=== PATIENT | female | born 1945 | race Caucasian/White ===

== ENCOUNTER → 2019-08-02 | Outpatient (CLI) | payer MEDICARE, OTHER ==
[~2019-08-02] MED LIST: ASPI-404 PO; GABA300C10 PO; METO-169 PO; NAP500T PO; ROSU10TA16 PO
[2019-08-02 09:20] LABS: Basophils # (auto) 0.1 10 ^3/uL (0-0.2); Basophils % (auto) 1.3 % (0.0-2.0); Eosinophils # (auto) 0.1 10 ^3/uL (0-0.8); Eosinophils % (auto) 2.9 % (0.0-7.0); Hematocrit 43.9 % (36.0-46.0); Hemoglobin 14.6 g/dL (12.2-16.2); Lymphocytes # (auto) 1.4 10 ^3/uL (0.4-5.4); Lymphocytes % (auto) 30.1 % (10.0-50.0); Mean Corpuscular Hemoglobin 29.7 pg (28.0-32.0); Mean Corpuscular Hgb Conc. 33.3 g/dL (32.0-36.0); Mean Corpuscular Volume 89.2 fL (80.0-100.0); Monocytes # (auto) 0.3 10 ^3/uL (0-1.3); Monocytes % (auto) 7.3 % (0.0-12.0); Neutrophils # (auto) 2.6 10 ^3/uL (1.6-8.6); Neutrophils % (auto) 58.4 % (37.0-80.0); Platelet Count (auto) 173 10^3/uL (140-450); Red Blood Cells 4.93 10^6/uL (4.0-5.20); Red Cell Distribution Width 14.9 % (11.8-14.3); White Blood Cell 4.5 10^3/uL (4.4-10.8)
[2019-08-02 09:33] LABS: Urine Blood Negative /uL (Negative); Urine Specific Gravity 1.007 (1.001-1.035); Urine WBC 93 /hpf (0 - 5)
[2019-08-02 09:36] LABS: Urine Bacteria MODERATE /hpf (None Seen)
[2019-08-02 10:04] LABS: Potassium 3.5 mmol/L (3.5-5.1)
[2019-08-02 10:10] LABS: Carcinoembryonic Antigen 1.15 ng/mL (<5.0 OR =); Free T4 (Free Thyroxine) 1.85 ng/dL (0.89-1.76)
[2019-08-02 10:16] LABS: Albumin 3.6 g/dL (3.4-5.0); BUN/Creatinine Ratio 7.3; Bilirubin, Total 1.5 mg/dL (0.2-1.0); Calcium 8.9 mg/dL (8.5-10.1); Total Protein 6.8 g/dL (6.4-8.2)
== END | disposition home or self-care (01) ==
LOC: LAB 08:27
PROVIDERS: ATTEND Internal Medicine
DX: I10 Essential (primary) hypertension (principal); E03.9 Hypothyroidism, unspecified; R63.4 Abnormal weight loss; R53.83 Other fatigue; R73.03 Prediabetes
CPT/HCPCS: 36415; 80053; 80061; 81001; 82378; 82607; 83036; 84439; 84443; 85025; 87086; 87088; 87186

== ENCOUNTER → 2019-11-01 | Outpatient (CLI) | payer MEDICARE, OTHER ==
[2019-11-01 14:36] LABS: Basophils # (auto) 0.1 10 ^3/uL (0-0.2); Basophils % (auto) 1.1 % (0.0-2.0); Eosinophils # (auto) 0.1 10 ^3/uL (0-0.8); Eosinophils % (auto) 1.7 % (0.0-7.0); Hematocrit 44.3 % (36.0-46.0); Hemoglobin 14.4 g/dL (12.2-16.2); Lymphocytes % (auto) 28.6 % (10.0-50.0); Mean Corpuscular Hemoglobin 28.9 pg (28.0-32.0); Mean Corpuscular Hgb Conc. 32.5 g/dL (32.0-36.0); Mean Corpuscular Volume 88.8 fL (80.0-100.0); Monocytes # (auto) 0.5 10 ^3/uL (0-1.3); Monocytes % (auto) 6.6 % (0.0-12.0); Neutrophils # (auto) 4.3 10 ^3/uL (1.6-8.6); Nucleated Red Blood Cells % 0.1 %; Platelet Count (auto) 192 10^3/uL (140-450); Red Blood Cells 4.98 10^6/uL (4.0-5.20); White Blood Cell 6.9 10^3/uL (4.4-10.8)
[2019-11-01 15:23] LABS: Albumin 3.8 g/dL (3.4-5.0); BUN/Creatinine Ratio 9.2; Calcium 8.7 mg/dL (8.5-10.1); Potassium 4.1 mmol/L (3.5-5.1)
[2019-11-01 15:25] LABS: Bilirubin, Total 1.4 mg/dL (0.2-1.0)
== END | disposition home or self-care (01) ==
LOC: LAB 14:22
PROVIDERS: ATTEND Internal Medicine
DX: R73.03 Prediabetes (principal); E03.9 Hypothyroidism, unspecified
CPT/HCPCS: 36415; 80053; 83036; 84439; 84443; 85025

== ENCOUNTER → 2019-12-12 | Outpatient (CLI) | payer MEDICARE, OTHER | END | disposition home or self-care (01) | LOC: LAB 11:15 | PROVIDERS: ATTEND Internal Medicine | DX: I48.91 Unspecified atrial fibrillation (principal) | CPT/HCPCS: 36415; 80162 ==

== ENCOUNTER → 2019-12-12 | Outpatient (CLI) | payer MEDICARE, OTHER | END | disposition home or self-care (01) | LOC: XYW 09:34 | PROVIDERS: ATTEND Internal Medicine | DX: I08.3 Combined rheumatic disorders of mitral, aortic and tricuspid valves (principal); I48.91 Unspecified atrial fibrillation | CPT/HCPCS: 93306 ==

== ENCOUNTER → 2020-05-29 | Outpatient (CLI) | payer MEDICARE, OTHER ==
[~2020-05-29] MED LIST changes: -ASPI-404 PO; +ASPI-543 PO
[2020-05-29 11:39] LABS: Basophils # (auto) 0.1 10 ^3/uL (0-0.2); Basophils % (auto) 1.1 % (0.0-2.0); Eosinophils # (auto) 0.1 10 ^3/uL (0-0.8); Eosinophils % (auto) 2.2 % (0.0-7.0); Hematocrit 40.5 % (36.0-46.0); Hemoglobin 13.7 g/dL (12.2-16.2); Lymphocytes # (auto) 1.7 10 ^3/uL (0.4-5.4); Lymphocytes % (auto) 30.2 % (10.0-50.0); Mean Corpuscular Hemoglobin 29.8 pg (28.0-32.0); Mean Corpuscular Hgb Conc. 33.8 g/dL (32.0-36.0); Mean Corpuscular Volume 88.1 fL (80.0-100.0); Monocytes # (auto) 0.3 10 ^3/uL (0-1.3); Monocytes % (auto) 5.9 % (0.0-12.0); Neutrophils # (auto) 3.4 10 ^3/uL (1.6-8.6); Neutrophils % (auto) 60.6 % (37.0-80.0); Nucleated Red Blood Cells % 0.1 %; Platelet Count (auto) 154 10^3/uL (140-450); Red Blood Cells 4.59 10^6/uL (4.0-5.20); Red Cell Distribution Width 14.8 % (11.8-14.3); White Blood Cell 5.6 10^3/uL (4.4-10.8)
[2020-05-29 12:30] LABS: Albumin 3.8 g/dL (3.4-5.0); Calcium 8.8 mg/dL (8.5-10.1); Potassium 4.1 mmol/L (3.5-5.1)
[2020-05-29 12:34] LABS: Total Protein 7.3 g/dL (6.4-8.2)
== END | disposition home or self-care (01) ==
LOC: LAB 11:26
PROVIDERS: ATTEND Internal Medicine
DX: I10 Essential (primary) hypertension (principal); E03.9 Hypothyroidism, unspecified; R73.9 Hyperglycemia, unspecified
CPT/HCPCS: 36415; 80053; 83036; 84439; 84443; 85025

== ENCOUNTER → 2020-11-13 | Outpatient (CLI) | payer MEDICARE, OTHER ==
[~2020-11-13] MED LIST changes: -METO-169 PO; +METO-289 PO
== END | disposition home or self-care (01) ==
LOC: XYW 10:35
PROVIDERS: ATTEND Internal Medicine
DX: I08.3 Combined rheumatic disorders of mitral, aortic and tricuspid valves (principal); I48.91 Unspecified atrial fibrillation; I50.9 Heart failure, unspecified
CPT/HCPCS: 93306

== ENCOUNTER → 2020-11-26 | Outpatient (CLI) | payer MEDICARE, OTHER ==
[2020-11-26 09:28] LABS: Basophils # (auto) 0.1 10 ^3/uL (0-0.2); Eosinophils # (auto) 0.2 10 ^3/uL (0-0.8); Eosinophils % (auto) 3.4 % (0.0-7.0); Hematocrit 43.7 % (36.0-46.0); Hemoglobin 15.2 g/dL (12.2-16.2); Lymphocytes # (auto) 1.7 10 ^3/uL (0.4-5.4); Lymphocytes % (auto) 31.3 % (10.0-50.0); Mean Corpuscular Hemoglobin 30.8 pg (28.0-32.0); Mean Corpuscular Hgb Conc. 34.8 g/dL (32.0-36.0); Mean Corpuscular Volume 88.4 fL (80.0-100.0); Monocytes # (auto) 0.3 10 ^3/uL (0-1.3); Monocytes % (auto) 5.9 % (0.0-12.0); Neutrophils # (auto) 3.2 10 ^3/uL (1.6-8.6); Neutrophils % (auto) 58.4 % (37.0-80.0); Red Blood Cells 4.94 10^6/uL (4.0-5.20); Red Cell Distribution Width 14.7 % (11.8-14.3); White Blood Cell 5.5 10^3/uL (4.4-10.8)
[2020-11-26 09:57] LABS: Albumin 3.9 g/dL (3.4-5.0); Calcium 8.9 mg/dL (8.5-10.1); Potassium 4.3 mmol/L (3.5-5.1)
[2020-11-26 10:02] LABS: BUN/Creatinine Ratio 16.3; Bilirubin, Total 0.9 mg/dL (0.2-1.0); Total Protein 7.1 g/dL (6.4-8.2)
== END | disposition home or self-care (01) ==
LOC: LAB 09:07
PROVIDERS: ATTEND Internal Medicine
DX: I27.20 Pulmonary hypertension, unspecified (principal); E03.9 Hypothyroidism, unspecified; R73.9 Hyperglycemia, unspecified; I30.0 Acute nonspecific idiopathic pericarditis; E55.9 Vitamin D deficiency, unspecified
CPT/HCPCS: 36415; 80053; 80061; 82274; 82306; 83036; 84439; 84443; 85025; 85049

== ENCOUNTER → 2021-08-06 | Outpatient (CLI) | payer MEDICARE, OTHER ==
[2021-08-06 09:30] LABS: Basophils # (auto) 0 10 ^3/uL (0-0.2); Basophils % (auto) 1.1 % (0.0-2.0); Eosinophils # (auto) 0.1 10 ^3/uL (0-0.8); Eosinophils % (auto) 3.1 % (0.0-7.0); Hematocrit 42.3 % (36.0-46.0); Hemoglobin 14.2 g/dL (12.2-16.2); Lymphocytes # (auto) 1.4 10 ^3/uL (0.4-5.4); Lymphocytes % (auto) 30.9 % (10.0-50.0); Mean Corpuscular Hemoglobin 29.9 pg (28.0-32.0); Mean Corpuscular Hgb Conc. 33.6 g/dL (32.0-36.0); Monocytes # (auto) 0.3 10 ^3/uL (0-1.3); Monocytes % (auto) 5.9 % (0.0-12.0); Neutrophils # (auto) 2.7 10 ^3/uL (1.6-8.6); Nucleated Red Blood Cells % 0.1 %; Red Blood Cells 4.75 10^6/uL (4.0-5.20); Red Cell Distribution Width 14.5 % (11.8-14.3); White Blood Cell 4.5 10^3/uL (4.4-10.8)
[2021-08-06 10:16] LABS: Potassium 4.2 mmol/L (3.5-5.1)
[2021-08-06 10:27] LABS: BUN/Creatinine Ratio 21.3; Bilirubin, Total 1.1 mg/dL (0.2-1.0)
== END | disposition home or self-care (01) ==
LOC: LAB 08:32
PROVIDERS: ATTEND Internal Medicine
DX: I48.91 Unspecified atrial fibrillation (principal); I10 Essential (primary) hypertension; Z79.899 Other long term (current) drug therapy
CPT/HCPCS: 36415; 80053; 80061; 82274; 83036; 84443; 85025

== ENCOUNTER → 2022-04-05 | Outpatient (CLI) | payer MEDICARE, OTHER ==
[2022-04-05 12:49] LABS: Basophils # (auto) 0.1 10 ^3/uL (0-0.2); Basophils % (auto) 1.1 % (0.0-2.0); Eosinophils # (auto) 0.1 10 ^3/uL (0-0.8); Eosinophils % (auto) 1.9 % (0.0-7.0); Hematocrit 42.4 % (36.0-46.0); Lymphocytes # (auto) 1.2 10 ^3/uL (0.4-5.4); Lymphocytes % (auto) 25.4 % (10.0-50.0); Mean Corpuscular Hemoglobin 29.8 pg (28.0-32.0); Mean Corpuscular Hgb Conc. 33.1 g/dL (32.0-36.0); Mean Corpuscular Volume 89.9 fL (80.0-100.0); Monocytes # (auto) 0.3 10 ^3/uL (0-1.3); Monocytes % (auto) 5.5 % (0.0-12.0); Neutrophils # (auto) 3.2 10 ^3/uL (1.6-8.6); Neutrophils % (auto) 66.1 % (37.0-80.0); Nucleated Red Blood Cells % 0.1 %; Red Blood Cells 4.71 10^6/uL (4.0-5.20); Red Cell Distribution Width 15.1 % (11.8-14.3); White Blood Cell 4.8 10^3/uL (4.4-10.8)
[2022-04-05 13:06] LABS: Albumin 3.9 g/dL (3.4-5.0); BUN/Creatinine Ratio 17.9; Bilirubin, Total 1.4 mg/dL (0.2-1.0); Potassium 4.3 mmol/L (3.5-5.1)
[2022-04-05 13:16] LABS: Urine Bacteria FEW /hpf (None Seen); Urine Blood TRACE /uL (Negative); Urine Hyaline Cast FEW /lpf (0 - 2); Urine Mucus FEW (None Seen); Urine Specific Gravity 1.018 (1.001-1.035); Urine WBC 13 /hpf (0 - 5)
== END | disposition home or self-care (01) ==
LOC: LAB 10:47
PROVIDERS: ATTEND Internal Medicine
DX: R73.03 Prediabetes (principal); I10 Essential (primary) hypertension; E55.9 Vitamin D deficiency, unspecified; D64.9 Anemia, unspecified
CPT/HCPCS: 36415; 80053; 81001; 82274; 82306; 82607; 83036; 84443; 85025

== ENCOUNTER 2022-05-03 07:26 | Day surgery (SDC) | payer MEDICARE, OTHER ==
[~2022-05-03] VITALS: Ht 165.1 cm; Wt 78.9 kg
[2022-05-03] VITALS (7 sets, daily range): BP systolic 94–119; BP diastolic 52–70
[2022-05-03] MEDS ORDERED: fentaNYL CITRATE 100 MCG/2 ML VL IV ONE (08:30)
[2022-05-03] MEDS ORDERED: diphenhdrAMINE HCL 50 MG/1 ML VL IV ONE (08:30)
[2022-05-03] MEDS ORDERED: MIDAZOLAM HCL 2MG/2ML 2ml VIAL (1mg/ml) IV ONE (08:30)
[2022-05-03] MEDS ORDERED: LISI-716 PO (09:15)
[2022-05-03] MEDS ORDERED: LEV25T GT (09:15)
[2022-05-03] MEDS ORDERED: APIX5TAB PO (09:15)
[2022-05-03] MEDS ORDERED: DIGO0.25 PO (09:15)
[2022-05-03] MEDS ORDERED: POTA8TAB2 PO (09:15)
[2022-05-03] MEDS ORDERED: PUMP1CAP PO (09:19)
[2022-05-03] MEDS ORDERED: METO-158 PO (09:23)
[2022-05-03] MEDS ORDERED: LIDOCAINE VISCOUS 2% 15ML UD MT ONE (09:30)
[2022-05-03] MEDS ORDERED: IODIXANOL 320MG/ML 100ML BTL IV ONE (10:08)
[2022-05-03] MEDS ORDERED: LIDOCAINE 2%HCL (LOCAL ANESTH.) INJ 20ML MDV ONE (10:09)
[2022-05-03] MEDS ORDERED: ANGIOMAX 250 MG VIAL IV ONE (10:13)
[2022-05-03] MEDS ORDERED: SODIUM CHL 0.9% 0 ML ONE (10:14)
[2022-05-03] MEDS ORDERED: VERAPAMIL 2.5MG/ML INJ 2ML VIAL IV ONE (10:14)
[2022-05-03] MEDS ORDERED: HEPARIN SODIUM (PORCINE) 5000 UNITS/ML 1ML VIAL ONE (10:14)
== END 2022-05-03 14:00 | disposition home or self-care (01) ==
LOC: CATH 07:26
PROVIDERS: ATTEND Internal Medicine
DX: I08.3 Combined rheumatic disorders of mitral, aortic and tricuspid valves (principal); I27.20 Pulmonary hypertension, unspecified; I48.91 Unspecified atrial fibrillation; Z79.899 Other long term (current) drug therapy; Z79.01 Long term (current) use of anticoagulants; Z20.822 Contact with and (suspected) exposure to COVID-19; Z90.710 Acquired absence of both cervix and uterus
CPT/HCPCS: 93312; 93460; C1751; C1769; C1887; C1894; J1644; J2250; J3010; Q9967; U0003; 99152

== ENCOUNTER 2022-12-26 12:18 | Inpatient (IN) | payer MEDICARE, OTHER ==
[~2022-12-26] VITALS: Ht 167.6 cm; Wt 99.5 kg
[~2022-12-26 12:18] MED LIST changes: +APIX5TAB PO; -ASPI-543 PO; +DIGO0.25 PO; -GABA300C10 PO; +LEV25T GT; +LISI10TA34 PO; +METO-158 PO; -METO-289 PO; -NAP500T PO; +POTA8TAB38 PO; +PUMP1CAP PO; -ROSU10TA16 PO
[2022-12-26 12:43] LABS: Basophils # (auto) 0 10 ^3/uL (0-0.2); Eosinophils # (auto) 0.3 10 ^3/uL (0-0.8); Eosinophils % (auto) 4.2 % (0.0-7.0); Hematocrit 41.7 % (36.0-46.0); Hemoglobin 14.1 g/dL (12.2-16.2); Lymphocytes # (auto) 1.2 10 ^3/uL (0.4-5.4); Lymphocytes % (auto) 17.1 % (10.0-50.0); Mean Corpuscular Hemoglobin 30.8 pg (28.0-32.0); Mean Corpuscular Hgb Conc. 33.8 g/dL (32.0-36.0); Mean Corpuscular Volume 90.9 fL (80.0-100.0); Monocytes # (auto) 0.2 10 ^3/uL (0-1.3); Monocytes % (auto) 3.3 % (0.0-12.0); Neutrophils # (auto) 5.3 10 ^3/uL (1.6-8.6); Neutrophils % (auto) 75.4 % (37.0-80.0); Red Blood Cells 4.58 10^6/uL (4.0-5.20); Red Cell Distribution Width 14.1 % (11.8-14.3); White Blood Cell 7.1 10^3/uL (4.4-10.8)
[2022-12-26 13:15] LABS: Albumin 3.9 g/dL (3.4-5.0); Calcium 8.9 mg/dL (8.5-10.1); Potassium 4.1 mmol/L (3.5-5.1)
[2022-12-26 13:18] LABS: BUN/Creatinine Ratio 13.7 (10.0-20.0); Bilirubin, Total 2.4 mg/dL (0.2-1.0); Total Protein 6.4 g/dL (6.4-8.2)
[2022-12-26] MEDS ORDERED: ATOR40TA52 PO (17:40)
[2022-12-26] MEDS ORDERED: MORPHINE SULFATE INJ 2 MG/ml SYRG IV PRN (17:45)
[2022-12-26] MEDS ORDERED: NITROGLYCERIN 0.4 MG SL TAB SL PRN (17:45)
[2022-12-26] MEDS ORDERED: FUROSEMIDE 20 MG/2 ML VIAL IV ONE (17:45)
[2022-12-26 17:56] VITALS: O2SAT 95
[2022-12-26] MEDS ORDERED: IPRATROPIUM BROM 0.5 MG/2.5ML INH SOL NEB PRN (18:00)
[2022-12-26] MEDS ORDERED: ALBUTEROL SULF 2.5 MG/0.5ML(0.5%) NEB SOLN NEB PRN (18:00)
[2022-12-26 20:10] VITALS: PULSE 106; RESP 30; O2SAT 96
[2022-12-26 20:22] VITALS: PULSE 106; RESP 22; O2SAT 96
[2022-12-26] MEDS ORDERED: IOHEXOL 350 MG/ML 100ML IJ ONE (20:43)
[2022-12-26] MEDS: APIXABAN 5 MG TAB PO SCH (22:58)
[2022-12-27 00:17] VITALS: O2SAT 96
[2022-12-27 06:29] LABS: Basophils # (auto) 0.1 10 ^3/uL (0-0.2); Basophils % (auto) 1.1 % (0.0-2.0); Eosinophils # (auto) 0.1 10 ^3/uL (0-0.8); Eosinophils % (auto) 2.2 % (0.0-7.0); Hematocrit 38.3 % (36.0-46.0); Hemoglobin 13.1 g/dL (12.2-16.2); Lymphocytes # (auto) 1.2 10 ^3/uL (0.4-5.4); Lymphocytes % (auto) 24.8 % (10.0-50.0); Mean Corpuscular Hemoglobin 30.9 pg (28.0-32.0); Mean Corpuscular Hgb Conc. 34.2 g/dL (32.0-36.0); Mean Corpuscular Volume 90.3 fL (80.0-100.0); Monocytes # (auto) 0.3 10 ^3/uL (0-1.3); Monocytes % (auto) 7.2 % (0.0-12.0); Neutrophils # (auto) 3.1 10 ^3/uL (1.6-8.6); Neutrophils % (auto) 64.7 % (37.0-80.0); Nucleated Red Blood Cells % 0.2 %; Red Blood Cells 4.25 10^6/uL (4.0-5.20); Red Cell Distribution Width 14.1 % (11.8-14.3); White Blood Cell 4.8 10^3/uL (4.4-10.8)
[2022-12-27 07:00] LABS: Potassium 3.4 mmol/L (3.5-5.1)
[2022-12-27 07:06] LABS: Albumin 3.4 g/dL (3.4-5.0); BUN/Creatinine Ratio 14.1 (10.0-20.0); Calcium 8.1 mg/dL (8.5-10.1)
[2022-12-27 07:08] LABS: Bilirubin, Total 2.1 mg/dL (0.2-1.0); Total Protein 5.9 g/dL (6.4-8.2)
[2022-12-27 08:04] VITALS: PULSE 102; RESP 16; O2SAT 93
[2022-12-27] MEDS ORDERED: PANTOPRAZOLE 40 MG/10 ML VIAL INJ IV SCH (10:00)
[2022-12-27] MEDS ORDERED: POTASSIUM CHLORIDE 8 MEQ TAB PO SCH (10:00)
[2022-12-27] MEDS ORDERED: LEVOTHYROXINE SODIUM 25 MCG TAB PO SCH (10:00)
[2022-12-27] MEDS ORDERED: FUROSEMIDE 20 MG/2 ML VIAL IV SCH (10:00)
[2022-12-27] MEDS ORDERED: POTASSIUM CHL 20 Meq TABLET PO SCH (10:00)
[2022-12-27] MEDS ORDERED: POTASSIUM CHL 20 Meq TABLET PO ONE (10:00)
[2022-12-27] MEDS: ATORVASTATIN 20 MG TAB PO SCH (10:15)
[2022-12-27] MEDS: METOPROLOL TARTRATE 50 MG TAB PO SCH (10:16)
[2022-12-27] MEDS: APIXABAN 5 MG TAB PO SCH ×2 (10:16→21:07)
[2022-12-27] MEDS: DIGOXIN 0.25 MG TAB PO SCH (10:17)
[2022-12-27] MEDS: LISINOPRIL 10 MG TAB PO SCH (10:17)
[2022-12-27 10:19] LABS: Hepatitis A Ab IgM Negative; Hepatitis B Core IgM Negative; Hepatitis C Antibody Negative (Negative)
[2022-12-27 11:47] LABS: Magnesium 2.4 mg/dL (1.6-2.6)
[2022-12-27] MEDS: FUROSEMIDE 20 MG/2 ML VIAL IV SCH ×2 (14:31→18:56)
[2022-12-27 17:00] VITALS: BP 111/68; PULSE 84; RESP 18; TEMP 98.1; O2SAT 93
[2022-12-27] MEDS ORDERED: traMADol HCL 50 MG TAB PO PRN (17:30)
[2022-12-27 18:48] VITALS: RESP 18; O2SAT 97
[2022-12-27 20:37] LABS: Urine Bacteria FEW /hpf (None Seen); Urine Blood Negative /uL (Negative); Urine Specific Gravity 1.006 (1.001-1.035); Urine WBC 1 /hpf (0 - 5)
[2022-12-27 22:00] VITALS: BP 117/56; PULSE 89; RESP 17; TEMP 98; O2SAT 92
[2022-12-28] VITALS (12 sets, daily range): BP systolic 111–144; BP diastolic 59–83; PULSE 64–121; RESP 16–20; TEMP 97.8–98.5; O2SAT 18–98
[2022-12-28] MEDS: FUROSEMIDE 20 MG/2 ML VIAL IV SCH ×2 (06:11→17:46)
[2022-12-28 06:19] LABS: Free T4 (Free Thyroxine) 1.03 ng/dL (0.89-1.76)
[2022-12-28 06:22] LABS: Calcium 8.5 mg/dL (8.5-10.1); Potassium 3.4 mmol/L (3.5-5.1)
[2022-12-28] MEDS: ATORVASTATIN 20 MG TAB PO SCH (09:11)
[2022-12-28] MEDS: POTASSIUM CHL 20 Meq TABLET PO SCH ×2 (09:11→22:09)
[2022-12-28] MEDS: APIXABAN 5 MG TAB PO SCH ×2 (09:11→22:08)
[2022-12-28] MEDS: METOPROLOL TARTRATE 50 MG TAB PO SCH (09:12)
[2022-12-28] MEDS: LEVOTHYROXINE SODIUM 50 MCG TAB PO SCH (09:12)
[2022-12-28] MEDS: LISINOPRIL 10 MG TAB PO SCH (09:13)
[2022-12-28] MEDS ORDERED: PANTOPRAZOLE 40 MG TAB PO SCH (10:00)
[2022-12-29] VITALS: BP 111/61; PULSE 64; RESP 16; TEMP 98.3; O2SAT 93
[2022-12-29 05:00] VITALS: BP 113/65; PULSE 93; RESP 16; TEMP 97.6; O2SAT 94
[2022-12-29] MEDS: FUROSEMIDE 20 MG/2 ML VIAL IV SCH (06:26)
[2022-12-29 08:00] VITALS: BP 116/68; PULSE 103; PULSE 119; RESP 19; TEMP 97.4; O2SAT 93; O2SAT 96
[2022-12-29] MEDS: POTASSIUM CHL 20 Meq TABLET PO SCH (08:20)
[2022-12-29] MEDS ORDERED: ERGOCALCIFEROL 50,000 UNIT(1.25MG) CAP PO SCH (08:45)
[2022-12-29] MEDS ORDERED: POTASSIUM CHL 20 Meq TABLET PO SCH (08:45)
[2022-12-29 09:40] VITALS: O2SAT 95
[2022-12-29] MEDS: APIXABAN 5 MG TAB PO SCH (10:01)
[2022-12-29] MEDS: ATORVASTATIN 20 MG TAB PO SCH (10:02)
[2022-12-29] MEDS: LEVOTHYROXINE SODIUM 50 MCG TAB PO SCH (10:02)
[2022-12-29] MEDS: DIGOXIN 0.25 MG TAB PO SCH (10:02)
[2022-12-29] MEDS: LISINOPRIL 10 MG TAB PO SCH (10:03)
[2022-12-29] MEDS: METOPROLOL TARTRATE 50 MG TAB PO SCH (10:04)
[2022-12-29 13:00] VITALS: BP 134/55; PULSE 82; RESP 16; TEMP 96.9; O2SAT 94
[2022-12-29] MEDS ORDERED: LEV50T PO (14:58)
[2022-12-29] MEDS ORDERED: ERGO1CAP23 PO (14:58)
[2022-12-29 16:04] VITALS: BP 134/55; PULSE 103; RESP 19; TEMP 97.4; O2SAT 93
== END 2022-12-29 17:27 | disposition home health service (06) | DRG 291 ==
LOC: ER 12:18 → TELE 17:37 → TELE-WESTW 12-27 16:17
PROVIDERS: ADMIT Internal Medicine; ATTEND Internal Medicine
DX: I11.0 Hypertensive heart disease with heart failure (principal); I50.43 Acute on chronic combined systolic (congestive) and diastolic (congestive) heart failure; J96.01 Acute respiratory failure with hypoxia; I48.20 Chronic atrial fibrillation, unspecified; J91.8 Pleural effusion in other conditions classified elsewhere; I08.1 Rheumatic disorders of both mitral and tricuspid valves; E66.3 Overweight; E55.9 Vitamin D deficiency, unspecified; R74.01 Elevation of levels of liver transaminase levels; E78.5 Hyperlipidemia, unspecified; E66.9 Obesity, unspecified; I27.20 Pulmonary hypertension, unspecified; Z82.49 Family history of ischemic heart disease and other diseases of the circulatory system; Z83.3 Family history of diabetes mellitus; Z90.710 Acquired absence of both cervix and uterus; Z95.2 Presence of prosthetic heart valve; Z68.35 Body mass index [BMI] 35.0-35.9, adult
CPT/HCPCS: 36415; 71046; 71275; 76705; 80048; 80053; 80061; 80074; 80162; 80329; 81001; 82306; 82607; 83036; 83735; 83880; 84439; 84443; 84484; 85025; 85379; 93005; 93306; C9113; G0378

== ENCOUNTER 2023-01-21 15:17 | Inpatient (IN) | payer MEDICARE, OTHER ==
[~2023-01-21] VITALS: Ht 167.6 cm; Wt 79.5 kg
[~2023-01-21 15:17] MED LIST changes: +ATOR40TA52 PO; +ERGO1CAP23 PO; -LEV25T GT; +LEV50T PO
[2023-01-21 16:07] LABS: Basophils # (auto) 0.1 10 ^3/uL (0-0.2); Basophils % (auto) 0.9 % (0.0-2.0); Eosinophils # (auto) 0.1 10 ^3/uL (0-0.8); Hematocrit 43.1 % (36.0-46.0); Hemoglobin 14.2 g/dL (12.2-16.2); Lymphocytes # (auto) 1.6 10 ^3/uL (0.4-5.4); Lymphocytes % (auto) 25.2 % (10.0-50.0); Mean Corpuscular Hemoglobin 30.1 pg (28.0-32.0); Mean Corpuscular Hgb Conc. 32.9 g/dL (32.0-36.0); Mean Corpuscular Volume 91.5 fL (80.0-100.0); Monocytes # (auto) 0.4 10 ^3/uL (0-1.3); Monocytes % (auto) 6.2 % (0.0-12.0); Neutrophils # (auto) 4.1 10 ^3/uL (1.6-8.6); Neutrophils % (auto) 65.7 % (37.0-80.0); Nucleated Red Blood Cells % 0.1 %; Red Blood Cells 4.71 10^6/uL (4.0-5.20); Red Cell Distribution Width 14.8 % (11.8-14.3); White Blood Cell 6.3 10^3/uL (4.4-10.8)
[2023-01-21 16:38] LABS: Alanine Aminotransferase 37 U/L (7-40); Albumin 4.3 g/dL (3.2-4.8); Alkaline Phosphatase 97 U/L (46-116); Anion Gap 7.7 (5-15); Aspartate Aminotransferase 25 U/L (13-40); BUN/Creatinine Ratio 15.7 (10.0-20.0); Blood Urea Nitrogen 14 mg/dL (9-23); Calcium 9.4 mg/dL (8.5-10.1); Carbon Dioxide 26.3 mmol/L (20-30); Chloride 109 mmol/L (98-107); Glucose 142 mg/dL (74-106); Potassium 4.3 mmol/L (3.5-5.1); Sodium 143 mmol/L (136-145)
[2023-01-21 16:39] LABS: Bilirubin, Total 1.8 mg/dL (0.2-1.0); Total Protein 6.5 g/dL (5.7-8.2)
[2023-01-21 16:54] LABS: Urine Bacteria FEW /hpf (None Seen); Urine Blood 1+ /uL (Negative); Urine Clarity HAZY (Clear); Urine Color Yellow (Yellow); Urine Hyaline Cast FEW /lpf (0 - 2); Urine Mucus FEW (None Seen); Urine Protein, UAD 2+ (Negative); Urine Specific Gravity 1.022 (1.001-1.035); Urine Urobilinogen Normal (Negative); Urine WBC 26 /hpf (0 - 5); Urine pH 5.5 (5.0-8.0)
[2023-01-21] MEDS ORDERED: cefTRIAXone 1GM/50ML D5W 50 ML IV ONE (17:00)
[2023-01-21] MEDS ORDERED: FUROSEMIDE 20 MG/2 ML VIAL IV ONE (17:00)
[2023-01-21] MEDS ORDERED: ERGOCALCIFEROL 50,000 UNIT(1.25MG) CAP PO SCH (18:00)
[2023-01-21 19:35] LABS: INR 1.16 (0.9-1.15); Prothrombin Time 12.1 sec (9.3-11.8)
[2023-01-21] MEDS ORDERED: APIXABAN 5 MG TAB PO SCH (20:00)
[2023-01-21] MEDS ORDERED: ATORVASTATIN 20 MG TAB PO SCH (22:00)
[2023-01-21 22:42] VITALS: BP 132/80; PULSE 105; RESP 17; TEMP 98.3; O2SAT 90
[2023-01-22] MEDS ORDERED: LEVOTHYROXINE SODIUM 25 MCG TAB PO SCH (07:00)
[2023-01-22] MEDS ORDERED: FUROSEMIDE 20 MG/2 ML VIAL IV SCH (10:00)
[2023-01-22] MEDS ORDERED: LISINOPRIL 10 MG TAB PO SCH (10:00)
[2023-01-22] MEDS ORDERED: METOPROLOL TARTRATE 50 MG TAB PO SCH (10:00)
[2023-01-22] MEDS ORDERED: APIXABAN 5 MG TAB PO SCH (10:00)
[2023-01-24] MEDS ORDERED: DIGOXIN 0.125 MG TAB PO SCH (10:00)
== END 2023-01-22 19:51 | disposition left against medical advice (07) | DRG 291 ==
LOC: ER 15:17 → TELE 17:55
PROVIDERS: ADMIT Nurse Practitioner Family; ATTEND Nurse Practitioner Family
DX: I11.0 Hypertensive heart disease with heart failure (principal); I50.23 Acute on chronic systolic (congestive) heart failure; J96.00 Acute respiratory failure, unspecified whether with hypoxia or hypercapnia; D68.69 Other thrombophilia; Z53.29 Procedure and treatment not carried out because of patient's decision for other reasons; E78.5 Hyperlipidemia, unspecified; E03.9 Hypothyroidism, unspecified; I27.20 Pulmonary hypertension, unspecified; I48.91 Unspecified atrial fibrillation; I08.1 Rheumatic disorders of both mitral and tricuspid valves; Z79.899 Other long term (current) drug therapy; Z83.3 Family history of diabetes mellitus; Z82.49 Family history of ischemic heart disease and other diseases of the circulatory system; Z90.710 Acquired absence of both cervix and uterus; Z79.01 Long term (current) use of anticoagulants
CPT/HCPCS: 36415; 71045; 80053; 80162; 81001; 83880; 84484; 85025; 85379; 85610; 93005; G0378; J0696

== ENCOUNTER 2023-01-24 14:15 | Inpatient (IN) | payer MEDICARE, OTHER ==
[~2023-01-24] VITALS: Ht 167.6 cm; Wt 73.5 kg
[2023-01-24 15:26] LABS: Basophils # (auto) 0 10 ^3/uL (0-0.2); Basophils % (auto) 0.8 % (0.0-2.0); Eosinophils # (auto) 0.1 10 ^3/uL (0-0.8); Eosinophils % (auto) 1.8 % (0.0-7.0); Hematocrit 41.4 % (36.0-46.0); Hemoglobin 13.7 g/dL (12.2-16.2); Lymphocytes # (auto) 1.4 10 ^3/uL (0.4-5.4); Lymphocytes % (auto) 22.8 % (10.0-50.0); Mean Corpuscular Hemoglobin 30.2 pg (28.0-32.0); Mean Corpuscular Hgb Conc. 33.1 g/dL (32.0-36.0); Mean Corpuscular Volume 91.4 fL (80.0-100.0); Monocytes # (auto) 0.4 10 ^3/uL (0-1.3); Monocytes % (auto) 6.4 % (0.0-12.0); Neutrophils # (auto) 4.1 10 ^3/uL (1.6-8.6); Neutrophils % (auto) 68.2 % (37.0-80.0); Nucleated Red Blood Cells % 0.1 %; Red Blood Cells 4.53 10^6/uL (4.0-5.20); Red Cell Distribution Width 14.7 % (11.8-14.3)
[2023-01-24] MEDS ORDERED: FUROSEMIDE 40 MG/4 ML VIAL IV ONE (15:45)
[2023-01-24 15:47] LABS: Alanine Aminotransferase 32 U/L (7-40); Alkaline Phosphatase 86 U/L (46-116); Anion Gap 8.4 (5-15); Blood Urea Nitrogen 15 mg/dL (9-23); Calcium 9.5 mg/dL (8.7-10.4); Carbon Dioxide 25.6 mmol/L (20-30); Chloride 107 mmol/L (98-107); Glucose 132 mg/dL (74-106); Potassium 4.3 mmol/L (3.5-5.1); Sodium 141 mmol/L (136-145)
[2023-01-24 15:48] LABS: Albumin 4.3 g/dL (3.2-4.8); Aspartate Aminotransferase 27 U/L (13-40); Total Protein 6.5 g/dL (5.7-8.2)
[2023-01-24 16:00] VITALS: PULSE 98; RESP 18; O2SAT 92
[2023-01-24 16:56] LABS: Urine Bacteria NONE SEEN /hpf (None Seen); Urine Blood TRACE /uL (Negative); Urine Clarity Clear (Clear); Urine Color Yellow (Yellow); Urine Protein, UAD 1+ (Negative); Urine Specific Gravity 1.016 (1.001-1.035); Urine Urobilinogen Normal (Negative); Urine WBC <1 /hpf (0 - 5)
[2023-01-24] MEDS ORDERED: NITROGLYCERIN 0.4 MG SL TAB SL PRN (18:30)
[2023-01-24] MEDS ORDERED: HYDROcodone-ACET 5/325MG TAB PO PRN (18:30)
[2023-01-24] MEDS ORDERED: MORPHINE SULFATE INJ 2 MG/ml SYRG IV PRN (18:30)
[2023-01-24] MEDS ORDERED: ALBUTEROL SULF 2.5 MG/0.5ML(0.5%) NEB SOLN NEB PRN (18:30)
[2023-01-24] MEDS ORDERED: ACETAMINOPHEN 325 MG TAB PO PRN (18:30)
[2023-01-24] MEDS ORDERED: ERGOCALCIFEROL 50,000 UNIT(1.25MG) CAP PO SCH (18:30)
[2023-01-24 19:33] VITALS: BP 122/73; PULSE 98; RESP 18; O2SAT 98
[2023-01-24 19:45] VITALS: PULSE 98; RESP 22; O2SAT 95
[2023-01-24 20:19] LABS: LDL Cholesterol 60 mg/dL (< 100); Triglycerides 60 mg/dL (< 150)
[2023-01-24 20:21] LABS: Cholesterol 117 mg/dL (< 200); HDL Cholesterol 44 mg/dL (40-59)
[2023-01-24 21:30] VITALS: PULSE 106; RESP 21; O2SAT 95
[2023-01-24] MEDS: ALBUTEROL SULF 2.5 MG/0.5ML(0.5%) NEB SOLN NEB SCH (21:39)
[2023-01-24] MEDS: IPRATROPIUM BROM 0.5 MG/2.5ML INH SOL NEB SCH (21:39)
[2023-01-24 21:40] VITALS: PULSE 99; RESP 18; O2SAT 98
[2023-01-24] MEDS: ATORVASTATIN 20 MG TAB PO SCH (23:24)
[2023-01-24] MEDS: APIXABAN 5 MG TAB PO SCH (23:24)
[2023-01-25] VITALS (11 sets, daily range): BP systolic 114–132; BP diastolic 71–88; PULSE 77–107; RESP 14–22; TEMP 97.9–98.2; O2SAT 92–100
[2023-01-25] MEDS: ALBUTEROL SULF 2.5 MG/0.5ML(0.5%) NEB SOLN NEB SCH ×3 (02:00→09:54)
[2023-01-25] MEDS: IPRATROPIUM BROM 0.5 MG/2.5ML INH SOL NEB SCH ×6 (02:00→21:52)
[2023-01-25 06:08] LABS: Basophils # (auto) 0 10 ^3/uL (0-0.2); Basophils % (auto) 0.9 % (0.0-2.0); Eosinophils # (auto) 0.1 10 ^3/uL (0-0.8); Eosinophils % (auto) 2.3 % (0.0-7.0); Hematocrit 38.4 % (36.0-46.0); Hemoglobin 13.1 g/dL (12.2-16.2); Lymphocytes # (auto) 1.1 10 ^3/uL (0.4-5.4); Lymphocytes % (auto) 20.7 % (10.0-50.0); Mean Corpuscular Hemoglobin 30.7 pg (28.0-32.0); Mean Corpuscular Volume 90.5 fL (80.0-100.0); Monocytes # (auto) 0.4 10 ^3/uL (0-1.3); Monocytes % (auto) 8.2 % (0.0-12.0); Neutrophils # (auto) 3.6 10 ^3/uL (1.6-8.6); Neutrophils % (auto) 67.9 % (37.0-80.0); Nucleated Red Blood Cells % 0.2 %; Red Blood Cells 4.25 10^6/uL (4.0-5.20); Red Cell Distribution Width 14.6 % (11.8-14.3); White Blood Cell 5.3 10^3/uL (4.4-10.8)
[2023-01-25 06:09] LABS: Alanine Aminotransferase 27 U/L (7-40); Albumin 3.8 g/dL (3.2-4.8); Alkaline Phosphatase 76 U/L (46-116); Anion Gap 7.9 (5-15); Aspartate Aminotransferase 20 U/L (13-40); Bilirubin, Total 2.1 mg/dL (0.2-1.0); Blood Urea Nitrogen 14 mg/dL (9-23); Calcium 9.2 mg/dL (8.5-10.1); Carbon Dioxide 30.1 mmol/L (20-30); Chloride 105 mmol/L (98-107); Glucose 128 mg/dL (74-106); Potassium 3.3 mmol/L (3.5-5.1); Sodium 143 mmol/L (136-145); Total Protein 5.8 g/dL (5.7-8.2)
[2023-01-25] MEDS ORDERED: POTASSIUM CHL 20MEQ/100ML 100 ML IV ONE (09:30)
[2023-01-25] MEDS ORDERED: FUROSEMIDE 20 MG/2 ML VIAL IV SCH (10:00)
[2023-01-25] MEDS: LEVOTHYROXINE SODIUM 50 MCG TAB PO SCH (10:01)
[2023-01-25] MEDS: APIXABAN 5 MG TAB PO SCH ×2 (10:01→21:04)
[2023-01-25] MEDS: METOPROLOL TARTRATE 50 MG TAB PO SCH (10:02)
[2023-01-25] MEDS: LISINOPRIL 10 MG TAB PO SCH (10:03)
[2023-01-25 10:18] LABS: INR 1.22 (0.9-1.15); Partial Thromboplastin Time 29.1 SEC (24.5-34.5); Prothrombin Time 12.6 sec (9.3-11.8)
[2023-01-25] MEDS: POTASSIUM CHLORIDE 8 MEQ TAB PO SCH (10:35)
[2023-01-25] MEDS: FUROSEMIDE 20 MG/2 ML VIAL IV SCH (20:11)
[2023-01-25] MEDS: ATORVASTATIN 20 MG TAB PO SCH (21:04)
[2023-01-26] VITALS (16 sets, daily range): BP systolic 89–132; BP diastolic 50–78; PULSE 64–117; RESP 16–20; TEMP 97.7–98.1; O2SAT 92–100
[2023-01-26] MEDS: IPRATROPIUM BROM 0.5 MG/2.5ML INH SOL NEB SCH ×6 (02:00→22:02)
[2023-01-26] MEDS: FUROSEMIDE 20 MG/2 ML VIAL IV SCH ×3 (05:30→17:51)
[2023-01-26 06:14] LABS: Basophils # (auto) 0 10 ^3/uL (0-0.2); Basophils % (auto) 0.8 % (0.0-2.0); Eosinophils # (auto) 0.1 10 ^3/uL (0-0.8); Eosinophils % (auto) 2.2 % (0.0-7.0); Hematocrit 41.4 % (36.0-46.0); Hemoglobin 14.1 g/dL (12.2-16.2); Lymphocytes % (auto) 16.8 % (10.0-50.0); Mean Corpuscular Hemoglobin 30.7 pg (28.0-32.0); Mean Corpuscular Hgb Conc. 34.1 g/dL (32.0-36.0); Mean Corpuscular Volume 90.1 fL (80.0-100.0); Monocytes # (auto) 0.5 10 ^3/uL (0-1.3); Monocytes % (auto) 7.7 % (0.0-12.0); Neutrophils # (auto) 4.5 10 ^3/uL (1.6-8.6); Neutrophils % (auto) 72.5 % (37.0-80.0); Nucleated Red Blood Cells % 0.3 %; Red Blood Cells 4.59 10^6/uL (4.0-5.20); Red Cell Distribution Width 14.5 % (11.8-14.3); White Blood Cell 6.2 10^3/uL (4.4-10.8)
[2023-01-26 06:45] LABS: Alanine Aminotransferase 23 U/L (7-40); Alkaline Phosphatase 75 U/L (46-116); Anion Gap 8.2 (5-15); Aspartate Aminotransferase 16 U/L (13-40); BUN/Creatinine Ratio 10.1 (10.0-20.0); Blood Urea Nitrogen 8 mg/dL (9-23); Calcium 9.3 mg/dL (8.7-10.4); Carbon Dioxide 30.8 mmol/L (20-30); Chloride 102 mmol/L (98-107); Glucose 112 mg/dL (74-106); Potassium 3.1 mmol/L (3.5-5.1); Sodium 141 mmol/L (136-145)
[2023-01-26 06:46] LABS: Bilirubin, Total 2.5 mg/dL (0.2-1.0); Total Protein 6.2 g/dL (5.7-8.2)
[2023-01-26] MEDS ORDERED: POTASSIUM EFFERVESENT TAB 25 MEQ PO ONE ×2 (09:15→17:30)
[2023-01-26] MEDS: LISINOPRIL 10 MG TAB PO SCH (09:30)
[2023-01-26] MEDS: POTASSIUM CHLORIDE 8 MEQ TAB PO SCH (09:30)
[2023-01-26] MEDS: LEVOTHYROXINE SODIUM 50 MCG TAB PO SCH (09:30)
[2023-01-26] MEDS: DIGOXIN 0.125 MG TAB PO SCH (09:30)
[2023-01-26] MEDS: METOPROLOL TARTRATE 50 MG TAB PO SCH (09:31)
[2023-01-26] MEDS: APIXABAN 5 MG TAB PO SCH ×2 (09:31→21:28)
[2023-01-26] MEDS: ATORVASTATIN 20 MG TAB PO SCH (21:28)
[2023-01-27] VITALS (17 sets, daily range): BP systolic 83–116; BP diastolic 49–78; PULSE 60–160; RESP 14–19; TEMP 97.9–98.4; O2SAT 93–99
[2023-01-27] MEDS: IPRATROPIUM BROM 0.5 MG/2.5ML INH SOL NEB SCH ×6 (02:00→22:47)
[2023-01-27] MEDS: FUROSEMIDE 20 MG/2 ML VIAL IV SCH (05:40)
[2023-01-27 06:25] LABS: Basophils # (auto) 0.1 10 ^3/uL (0-0.2); Basophils % (auto) 1.1 % (0.0-2.0); Eosinophils # (auto) 0.2 10 ^3/uL (0-0.8); Hematocrit 45.6 % (36.0-46.0); Hemoglobin 15.5 g/dL (12.2-16.2); Lymphocytes # (auto) 1.5 10 ^3/uL (0.4-5.4); Lymphocytes % (auto) 22.9 % (10.0-50.0); Mean Corpuscular Hemoglobin 30.7 pg (28.0-32.0); Mean Corpuscular Hgb Conc. 34.1 g/dL (32.0-36.0); Mean Corpuscular Volume 89.9 fL (80.0-100.0); Monocytes # (auto) 0.6 10 ^3/uL (0-1.3); Nucleated Red Blood Cells % 0.2 %; Red Blood Cells 5.07 10^6/uL (4.0-5.20); Red Cell Distribution Width 14.6 % (11.8-14.3); White Blood Cell 6.3 10^3/uL (4.4-10.8)
[2023-01-27 06:44] LABS: Anion Gap 5.7 (5-15); Carbon Dioxide 33.3 mmol/L (20-30); Chloride 97 mmol/L (98-107)
[2023-01-27 06:45] LABS: Calcium 9.5 mg/dL (8.7-10.4)
[2023-01-27 06:50] LABS: BUN/Creatinine Ratio 9.9 (10.0-20.0); Blood Urea Nitrogen 9 mg/dL (9-23); Glucose 116 mg/dL (74-106)
[2023-01-27 06:54] LABS: Sodium 136 mmol/L (136-145)
[2023-01-27] MEDS: LEVOTHYROXINE SODIUM 50 MCG TAB PO SCH (09:25)
[2023-01-27] MEDS: APIXABAN 5 MG TAB PO SCH ×2 (09:25→09:33)
[2023-01-27] MEDS: POTASSIUM CHLORIDE 8 MEQ TAB PO SCH (09:25)
[2023-01-27] MEDS: METOPROLOL TARTRATE 50 MG TAB PO SCH (09:25)
[2023-01-27] MEDS: LISINOPRIL 10 MG TAB PO SCH (09:26)
[2023-01-27] MEDS ORDERED: DIGOXIN (250MCG/ML) 2 ML AMPULE ONE (11:56)
[2023-01-27] MEDS ORDERED: DIGOXIN (250MCG/ML) 2 ML AMPULE IV ONE (12:00)
[2023-01-27] MEDS ORDERED: AMIODARONE BOLUS KIT 100 ML IV ONE (13:00)
[2023-01-27] MEDS: AMIODARONE 450mg/250ml AE 250 ML IV SCH (13:15)
[2023-01-27] MEDS: ATORVASTATIN 20 MG TAB PO SCH (21:27)
[2023-01-28] VITALS (18 sets, daily range): BP systolic 105–122; BP diastolic 41–63; PULSE 66–107; RESP 14–24; TEMP 98–98.3; O2SAT 91–99
[2023-01-28] MEDS: IPRATROPIUM BROM 0.5 MG/2.5ML INH SOL NEB SCH ×6 (02:00→21:59)
[2023-01-28] MEDS: AMIODARONE 450mg/250ml AE 250 ML IV SCH (05:01)
[2023-01-28 06:42] LABS: Anion Gap 5.6 (5-15); Carbon Dioxide 31.4 mmol/L (20-30); Chloride 96 mmol/L (98-107); Potassium 3.9 mmol/L (3.5-5.1); Sodium 133 mmol/L (136-145)
[2023-01-28 06:44] LABS: Calcium 9.4 mg/dL (8.7-10.4)
[2023-01-28 06:48] LABS: Glucose 124 mg/dL (74-106)
[2023-01-28 06:49] LABS: BUN/Creatinine Ratio 15.5 (10.0-20.0); Blood Urea Nitrogen 15 mg/dL (9-23)
[2023-01-28 06:55] LABS: Basophils # (auto) 0.1 10 ^3/uL (0-0.2); Eosinophils # (auto) 0.2 10 ^3/uL (0-0.8); Hematocrit 45.3 % (36.0-46.0); Hemoglobin 15.4 g/dL (12.2-16.2); Lymphocytes # (auto) 1.2 10 ^3/uL (0.4-5.4); Lymphocytes % (auto) 15.4 % (10.0-50.0); Mean Corpuscular Hemoglobin 30.5 pg (28.0-32.0); Mean Corpuscular Volume 89.7 fL (80.0-100.0); Monocytes # (auto) 0.7 10 ^3/uL (0-1.3); Monocytes % (auto) 9.1 % (0.0-12.0); Neutrophils # (auto) 5.7 10 ^3/uL (1.6-8.6); Neutrophils % (auto) 72.5 % (37.0-80.0); Nucleated Red Blood Cells % 0.1 %; Red Blood Cells 5.05 10^6/uL (4.0-5.20); Red Cell Distribution Width 14.3 % (11.8-14.3); White Blood Cell 7.9 10^3/uL (4.4-10.8)
[2023-01-28] MEDS ORDERED: AMIO100T3 OR ×2 (09:19→09:36)
[2023-01-28] MEDS: LISINOPRIL 10 MG TAB PO SCH (10:03)
[2023-01-28] MEDS: LEVOTHYROXINE SODIUM 50 MCG TAB PO SCH (10:03)
[2023-01-28] MEDS: METOPROLOL TARTRATE 50 MG TAB PO SCH (10:04)
[2023-01-28] MEDS: DIGOXIN 0.125 MG TAB PO SCH (10:04)
[2023-01-28] MEDS: POTASSIUM CHLORIDE 8 MEQ TAB PO SCH (10:04)
[2023-01-28] MEDS ORDERED: AMIODARONE HCL 200 MG TAB PO ONE (11:45)
[2023-01-28] MEDS: ATORVASTATIN 20 MG TAB PO SCH (21:29)
[2023-01-28] MEDS: AMIODARONE HCL 200 MG TAB PO SCH (21:32)
[2023-01-29] VITALS (16 sets, daily range): BP systolic 98–115; BP diastolic 57–66; PULSE 68–94; RESP 16–26; TEMP 97.6–98.1; O2SAT 93–99
[2023-01-29] MEDS: IPRATROPIUM BROM 0.5 MG/2.5ML INH SOL NEB SCH ×6 (02:13→22:00)
[2023-01-29 06:27] LABS: Basophils # (auto) 0.1 10 ^3/uL (0-0.2); Basophils % (auto) 0.8 % (0.0-2.0); Eosinophils # (auto) 0.1 10 ^3/uL (0-0.8); Eosinophils % (auto) 1.1 % (0.0-7.0); Hematocrit 44.4 % (36.0-46.0); Hemoglobin 15.3 g/dL (12.2-16.2); Lymphocytes # (auto) 1.3 10 ^3/uL (0.4-5.4); Lymphocytes % (auto) 15.3 % (10.0-50.0); Mean Corpuscular Hemoglobin 30.7 pg (28.0-32.0); Mean Corpuscular Hgb Conc. 34.6 g/dL (32.0-36.0); Mean Corpuscular Volume 88.9 fL (80.0-100.0); Monocytes # (auto) 0.9 10 ^3/uL (0-1.3); Monocytes % (auto) 10.7 % (0.0-12.0); Neutrophils # (auto) 5.9 10 ^3/uL (1.6-8.6); Neutrophils % (auto) 72.1 % (37.0-80.0); Nucleated Red Blood Cells % 0.1 %; Red Blood Cells 4.99 10^6/uL (4.0-5.20); Red Cell Distribution Width 14.2 % (11.8-14.3); White Blood Cell 8.2 10^3/uL (4.4-10.8)
[2023-01-29 07:50] LABS: Anion Gap 8.1 (5-15); Carbon Dioxide 27.9 mmol/L (20-30); Chloride 96 mmol/L (98-107); Potassium 3.7 mmol/L (3.5-5.1); Sodium 132 mmol/L (136-145)
[2023-01-29 07:51] LABS: Calcium 9.3 mg/dL (8.5-10.1)
[2023-01-29 07:56] LABS: BUN/Creatinine Ratio 13.3 (10.0-20.0); Blood Urea Nitrogen 12 mg/dL (9-23); Glucose 127 mg/dL (74-106)
[2023-01-29] MEDS: LISINOPRIL 10 MG TAB PO SCH (09:33)
[2023-01-29] MEDS: METOPROLOL TARTRATE 50 MG TAB PO SCH (09:33)
[2023-01-29] MEDS: AMIODARONE HCL 200 MG TAB PO SCH ×2 (09:33→22:03)
[2023-01-29] MEDS: LEVOTHYROXINE SODIUM 50 MCG TAB PO SCH (09:34)
[2023-01-29] MEDS: POTASSIUM CHLORIDE 8 MEQ TAB PO SCH (09:34)
[2023-01-29] MEDS: ATORVASTATIN 20 MG TAB PO SCH (22:03)
[2023-01-30] VITALS (9 sets, daily range): BP systolic 101–122; BP diastolic 51–62; PULSE 63–98; RESP 14–20; TEMP 97.5–98; O2SAT 94–100
[2023-01-30] MEDS: IPRATROPIUM BROM 0.5 MG/2.5ML INH SOL NEB SCH ×3 (01:48→10:02)
[2023-01-30 05:13] LABS: Basophils # (auto) 0.1 10 ^3/uL (0-0.2); Eosinophils # (auto) 0.1 10 ^3/uL (0-0.8); Eosinophils % (auto) 1.6 % (0.0-7.0); Hematocrit 45.4 % (36.0-46.0); Hemoglobin 15.6 g/dL (12.2-16.2); Lymphocytes # (auto) 1.6 10 ^3/uL (0.4-5.4); Mean Corpuscular Hemoglobin 30.5 pg (28.0-32.0); Mean Corpuscular Hgb Conc. 34.3 g/dL (32.0-36.0); Monocytes # (auto) 0.8 10 ^3/uL (0-1.3); Monocytes % (auto) 10.2 % (0.0-12.0); Neutrophils % (auto) 66.2 % (37.0-80.0); Nucleated Red Blood Cells % 0.2 %; White Blood Cell 7.6 10^3/uL (4.4-10.8)
[2023-01-30 05:18] LABS: Chloride 96 mmol/L (98-107); Potassium 3.9 mmol/L (3.5-5.1); Sodium 130 mmol/L (136-145)
[2023-01-30 05:19] LABS: Calcium 9.2 mg/dL (8.7-10.4)
[2023-01-30 05:24] LABS: BUN/Creatinine Ratio 16.5 (10.0-20.0); Blood Urea Nitrogen 15 mg/dL (9-23); Glucose 126 mg/dL (74-106)
[2023-01-30] MEDS: LEVOTHYROXINE SODIUM 50 MCG TAB PO SCH (09:40)
[2023-01-30] MEDS: POTASSIUM CHLORIDE 8 MEQ TAB PO SCH (09:41)
[2023-01-30] MEDS: AMIODARONE HCL 200 MG TAB PO SCH (09:41)
[2023-01-30] MEDS: LISINOPRIL 10 MG TAB PO SCH (09:41)
[2023-01-30] MEDS: METOPROLOL TARTRATE 50 MG TAB PO SCH (09:41)
[2023-01-30] MEDS ORDERED: AMIO200T43 PO (14:36)
[2023-01-30] MEDS ORDERED: AMIO200T33 PO (14:41)
== END 2023-01-30 15:15 | disposition home or self-care (01) | DRG 291 ==
LOC: ER 14:15 → TELE 18:27 → TELE-WESTW 01-25 12:06
PROVIDERS: ADMIT Nurse Practitioner Family; ATTEND Student in an Organized Health Care Education/Training Program
DX: I11.0 Hypertensive heart disease with heart failure (principal); I50.43 Acute on chronic combined systolic (congestive) and diastolic (congestive) heart failure; I48.20 Chronic atrial fibrillation, unspecified; I48.21 Permanent atrial fibrillation; I08.1 Rheumatic disorders of both mitral and tricuspid valves; E78.5 Hyperlipidemia, unspecified; E87.6 Hypokalemia; F03.90 Unspecified dementia, unspecified severity, without behavioral disturbance, psychotic disturbance, mood disturbance, and anxiety; F41.9 Anxiety disorder, unspecified; Z82.49 Family history of ischemic heart disease and other diseases of the circulatory system; Z83.3 Family history of diabetes mellitus; Z90.710 Acquired absence of both cervix and uterus; Z95.2 Presence of prosthetic heart valve; Z87.891 Personal history of nicotine dependence
CPT/HCPCS: 36415; 71045; 71275; 80048; 80053; 80061; 80162; 81001; 82306; 82607; 83735; 83880; 84443; 84484; 85025; 85379; 85610; 85730; 93005; 93970; 94640; 96374; G0378; J3480

== ENCOUNTER → 2023-06-06 | Outpatient (CLI) | payer MEDICARE, OTHER ==
[~2023-06-06] MED LIST changes: +AMIO200T33 PO; -APIX5TAB PO
[2023-06-06 09:04] LABS: Basophils # (auto) 0.1 10 ^3/uL (0-0.2); Basophils % (auto) 1.1 % (0.0-2.0); Eosinophils # (auto) 0.3 10 ^3/uL (0-0.8); Hematocrit 43.6 % (36.0-46.0); Lymphocytes # (auto) 1.5 10 ^3/uL (0.4-5.4); Lymphocytes % (auto) 27.3 % (10.0-50.0); Mean Corpuscular Hemoglobin 28.2 pg (28.0-32.0); Mean Corpuscular Hgb Conc. 32.2 g/dL (32.0-36.0); Mean Corpuscular Volume 87.7 fL (80.0-100.0); Monocytes # (auto) 0.4 10 ^3/uL (0-1.3); Monocytes % (auto) 6.6 % (0.0-12.0); Neutrophils # (auto) 3.3 10 ^3/uL (1.6-8.6); Red Blood Cells 4.97 10^6/uL (4.0-5.20); Red Cell Distribution Width 14.9 % (11.8-14.3); White Blood Cell 5.6 10^3/uL (4.4-10.8)
[2023-06-06 09:20] LABS: Urine Bacteria FEW /hpf (None Seen); Urine Blood Negative /uL (Negative); Urine Clarity HAZY (Clear); Urine Color Yellow (Yellow); Urine Protein, UAD Negative (Negative); Urine Specific Gravity 1.014 (1.001-1.035); Urine Urobilinogen Normal (Negative); Urine WBC 8 /hpf (0 - 5); Urine pH 5.5 (5.0-8.0)
[2023-06-06 09:39] LABS: Albumin 4.1 g/dL (3.2-4.8); Alkaline Phosphatase 89 U/L (46-116); Anion Gap 6 (5-15); Aspartate Aminotransferase 17 U/L (13-40); BUN/Creatinine Ratio 12.1 (10.0-20.0); Blood Urea Nitrogen 12 mg/dL (9-23); Calcium 9.3 mg/dL (8.5-10.1); Carbon Dioxide 28 mmol/L (20-30); Chloride 105 mmol/L (98-107); Glucose 111 mg/dL (74-106); Potassium 4.5 mmol/L (3.5-5.1); Sodium 139 mmol/L (136-145)
[2023-06-06 09:40] LABS: Bilirubin, Total 0.7 mg/dL (0.2-1.0); Total Protein 6.4 g/dL (5.7-8.2)
[2023-06-06 09:43] LABS: Alanine Aminotransferase < 9 U/L (7-40)
[2023-06-06 11:28] LABS: Folate (Folic Acid) 14.19 ng/mL (>5.38)
[2023-06-06 11:31] LABS: Free T4 (Free Thyroxine) 1.65 ng/dL (0.89-1.76)
== END | disposition home or self-care (01) ==
LOC: LAB 08:49
PROVIDERS: ATTEND Internal Medicine
DX: I10 Essential (primary) hypertension (principal)
CPT/HCPCS: 36415; 80053; 81001; 82274; 82607; 82746; 84439; 84443; 85025

== ENCOUNTER 2023-08-12 09:49 | Inpatient (IN) | payer MEDICARE, OTHER ==
[~2023-08-12] VITALS: Ht 165.1 cm; Wt 71.0 kg
[2023-08-12 10:16] LABS: Basophils # (auto) 0.1 10 ^3/uL (0-0.2); Basophils % (auto) 1.2 % (0.0-2.0); Eosinophils # (auto) 0.2 10 ^3/uL (0-0.8); Eosinophils % (auto) 2.7 % (0.0-7.0); Hematocrit 46.9 % (36.0-46.0); Hemoglobin 15.4 g/dL (12.2-16.2); Lymphocytes # (auto) 1.8 10 ^3/uL (0.4-5.4); Lymphocytes % (auto) 28.8 % (10.0-50.0); Mean Corpuscular Hemoglobin 28.9 pg (28.0-32.0); Mean Corpuscular Hgb Conc. 32.9 g/dL (32.0-36.0); Mean Corpuscular Volume 87.8 fL (80.0-100.0); Monocytes # (auto) 0.4 10 ^3/uL (0-1.3); Monocytes % (auto) 6.7 % (0.0-12.0); Neutrophils # (auto) 3.7 10 ^3/uL (1.6-8.6); Neutrophils % (auto) 60.6 % (37.0-80.0); Nucleated Red Blood Cells % 0.1 %; Red Blood Cells 5.34 10^6/uL (4.0-5.20); Red Cell Distribution Width 14.8 % (11.8-14.3); White Blood Cell 6.1 10^3/uL (4.4-10.8)
[2023-08-12 10:26] LABS: Alanine Aminotransferase 14 U/L (7-40); Albumin 4.5 g/dL (3.2-4.8); Alkaline Phosphatase 94 U/L (46-116); Anion Gap 4 (5-15); Aspartate Aminotransferase 22 U/L (13-40); BUN/Creatinine Ratio 18.8 (10.0-20.0); Bilirubin, Total 1.1 mg/dL (0.2-1.0); Blood Urea Nitrogen 19 mg/dL (9-23); Calcium 9.7 mg/dL (8.5-10.1); Carbon Dioxide 31 mmol/L (20-30); Chloride 104 mmol/L (98-107); Glucose 126 mg/dL (74-106); Potassium 4.4 mmol/L (3.5-5.1); Sodium 139 mmol/L (136-145); Total Protein 6.8 g/dL (5.7-8.2)
[2023-08-12 10:27] LABS: INR 1.13 (0.9-1.15); Partial Thromboplastin Time 30.9 SEC (24.5-34.5); Prothrombin Time 11.8 sec (9.3-11.8)
[2023-08-12 10:30] VITALS: PULSE 103; RESP 14; O2SAT 96
[2023-08-12 11:21] LABS: Magnesium 1.9 mg/dL (1.6-2.6)
[2023-08-12] MEDS ORDERED: NITROGLYCERIN 0.4 MG SL TAB SL PRN (12:30)
[2023-08-12] MEDS ORDERED: DEXTROSE (50%) 50ML SYRG IV PRN (12:30)
[2023-08-12] MEDS ORDERED: ONDANSETRON HCL 4 MG/2 ML VIAL IV PRN (12:30)
[2023-08-12] MEDS ORDERED: MORPHINE SULFATE 4 MG/ML SYR/VIAL IV PRN (12:30)
[2023-08-12 12:32] LABS: Urine Bacteria NONE SEEN /hpf (None Seen); Urine Blood Negative /uL (Negative); Urine Clarity Clear (Clear); Urine Color Colorless (Yellow); Urine Protein, UAD Negative (Negative); Urine Specific Gravity 1.007 (1.001-1.035); Urine Urobilinogen Normal (Negative); Urine WBC 1 /hpf (0 - 5); Urine pH 6.5 (5.0-8.0)
[2023-08-12] MEDS ORDERED: LISINOPRIL 20 MG TAB PO SCH (12:50)
[2023-08-12 15:59] VITALS: BP 115/71; PULSE 98; RESP 17; TEMP 97.9; O2SAT 94
[2023-08-12 16:57] VITALS: BP 115/71; PULSE 98; RESP 17; TEMP 97.9; O2SAT 94
[2023-08-12] MEDS: InsuLIN REG 1unit/0.01ml Soln (100units/ml) SC SCH (17:00)
[2023-08-12] MEDS: ACCU-CHEK COMFORT CURVE STRIP VI SCH (17:08)
[2023-08-12 20:00] VITALS: PULSE 91; RESP 16; O2SAT 94
[2023-08-12 21:00] VITALS: BP 121/59; PULSE 87; RESP 14; TEMP 97.7; O2SAT 94
[2023-08-12] MEDS ORDERED: AMIODARONE HCL 200 MG TAB PO SCH (22:00)
[2023-08-12] MEDS: APIXABAN 5 MG TAB PO SCH (22:07)
[2023-08-12] MEDS: ATORVASTATIN 20 MG TAB PO SCH (22:07)
[2023-08-13] VITALS (8 sets, daily range): BP systolic 109–126; BP diastolic 58–99; PULSE 70–107; RESP 14–94; TEMP 87.8–97.6; O2SAT 91–94
[2023-08-13] MEDS: ACETAMINOPHEN 325 MG TAB PO PRN (01:20)
[2023-08-13] MEDS: LEVOTHYROXINE SODIUM 50 MCG TAB PO SCH (05:57)
[2023-08-13 06:16] LABS: Basophils # (auto) 0 10 ^3/uL (0-0.2); Basophils % (auto) 0.8 % (0.0-2.0); Eosinophils # (auto) 0.1 10 ^3/uL (0-0.8); Eosinophils % (auto) 2.5 % (0.0-7.0); Hematocrit 43.8 % (36.0-46.0); Hemoglobin 14.5 g/dL (12.2-16.2); Lymphocytes # (auto) 1.7 10 ^3/uL (0.4-5.4); Lymphocytes % (auto) 31.2 % (10.0-50.0); Mean Corpuscular Hemoglobin 28.8 pg (28.0-32.0); Mean Corpuscular Volume 87.4 fL (80.0-100.0); Monocytes # (auto) 0.4 10 ^3/uL (0-1.3); Monocytes % (auto) 7.7 % (0.0-12.0); Neutrophils # (auto) 3.1 10 ^3/uL (1.6-8.6); Neutrophils % (auto) 57.8 % (37.0-80.0); Nucleated Red Blood Cells % 0.1 %; Red Blood Cells 5.01 10^6/uL (4.0-5.20); Red Cell Distribution Width 14.4 % (11.8-14.3); White Blood Cell 5.3 10^3/uL (4.4-10.8)
[2023-08-13 06:35] LABS: Alanine Aminotransferase 11 U/L (7-40); Albumin 3.8 g/dL (3.2-4.8); Alkaline Phosphatase 72 U/L (46-116); Anion Gap 6 (5-15); Aspartate Aminotransferase 21 U/L (13-40); BUN/Creatinine Ratio 12.8 (10.0-20.0); Bilirubin, Total 1.1 mg/dL (0.2-1.0); Blood Urea Nitrogen 12 mg/dL (9-23); Calcium 9.1 mg/dL (8.5-10.1); Carbon Dioxide 27 mmol/L (20-30); Chloride 105 mmol/L (98-107); Cholesterol 151 mg/dL (< 200); Glucose 119 mg/dL (74-106); HDL Cholesterol 52 mg/dL (40-59); LDL Cholesterol 84 mg/dL (< 100); Potassium 3.9 mmol/L (3.5-5.1); Sodium 138 mmol/L (136-145); Total Protein 5.8 g/dL (5.7-8.2); Triglycerides 86 mg/dL (< 150)
[2023-08-13] MEDS: FUROSEMIDE 20 MG/2 ML VIAL IV SCH ×2 (09:18→18:47)
[2023-08-13] MEDS: METOPROLOL TARTRATE 50 MG TAB PO SCH (09:20)
[2023-08-13] MEDS: ASPirin 81 mg TAB PO SCH (09:20)
[2023-08-13] MEDS: DOCUSATE SOD 100 MG CAP PO SCH (09:21)
[2023-08-13] MEDS ORDERED: LEVOTHYROXINE SODIUM 50 MCG TAB PO SCH (10:00)
[2023-08-13] MEDS: AMIODARONE HCL 200 MG TAB PO ONE (12:45)
[2023-08-13] MEDS: AMIODARONE HCL 200 MG TAB PO SCH (22:07)
[2023-08-14 05:38] VITALS: BP 120/60; PULSE 87; RESP 19; TEMP 97.8; O2SAT 95
[2023-08-14 07:03] LABS: Chloride 102 mmol/L (98-107); Potassium 3.9 mmol/L (3.5-5.1); Sodium 135 mmol/L (136-145)
[2023-08-14 07:04] LABS: Anion Gap 7 (5-15); Calcium 9.3 mg/dL (8.7-10.4); Carbon Dioxide 26 mmol/L (20-30)
[2023-08-14 07:09] LABS: BUN/Creatinine Ratio 14.6 (10.0-20.0); Blood Urea Nitrogen 13 mg/dL (9-23); Glucose 111 mg/dL (74-106)
[2023-08-14 08:00] VITALS: PULSE 95
[2023-08-14 08:20] VITALS: PULSE 95; RESP 18; O2SAT 94
[2023-08-14 09:00] VITALS: BP 101/60; PULSE 95; RESP 18; TEMP 97.7; O2SAT 93
[2023-08-14] MEDS: METOPROLOL SUCCINATE XL 50 MG TAB PO SCH (09:48)
[2023-08-14 13:00] VITALS: BP 106/66; PULSE 87; RESP 20; TEMP 97.7; O2SAT 96
[2023-08-14] MEDS ORDERED: APIX5TAB PO (14:18)
[2023-08-14] MEDS ORDERED: POTA8TAB38 PO (14:18)
[2023-08-14] MEDS ORDERED: METO-6 PO (14:18)
[2023-08-14] MEDS ORDERED: LISI10TA34 PO (14:18)
[2023-08-14] MEDS ORDERED: LEV50T PO (14:18)
[2023-08-14] MEDS ORDERED: ERGO1CAP23 PO (14:18)
[2023-08-14] MEDS ORDERED: AMIO200T33 PO (14:18)
[2023-08-14 15:07] VITALS: BP 142/78; PULSE 85; RESP 20; TEMP 98.6; O2SAT 98
== END 2023-08-14 16:00 | disposition home or self-care (01) | DRG 291 ==
LOC: ER 09:49 → TELE 12:26 → TELE-WESTW 14:49
PROVIDERS: ADMIT Nurse Practitioner Family; ATTEND Nurse Practitioner Family
DX: I11.0 Hypertensive heart disease with heart failure (principal); I50.21 Acute systolic (congestive) heart failure; E87.1 Hypo-osmolality and hyponatremia; I48.0 Paroxysmal atrial fibrillation; R07.89 Other chest pain; E78.5 Hyperlipidemia, unspecified; I42.9 Cardiomyopathy, unspecified; E03.9 Hypothyroidism, unspecified; I27.20 Pulmonary hypertension, unspecified; F03.A0 Unspecified dementia, mild, without behavioral disturbance, psychotic disturbance, mood disturbance, and anxiety; Z95.2 Presence of prosthetic heart valve; Z90.710 Acquired absence of both cervix and uterus
CPT/HCPCS: 36415; 71045; 80048; 80053; 80061; 81001; 82962; 83735; 83880; 84443; 84484; 85025; 85379; 85610; 85730; 93005; 93306; G0378; J1815

== ENCOUNTER 2023-11-03 11:56 | Inpatient (IN) | payer MEDICARE, OTHER ==
[~2023-11-03] VITALS: Ht 162.6 cm; Wt 73.6 kg
[~2023-11-03 11:56] MED LIST changes: +APIX5TAB PO; -DIGO0.25 PO; -METO-158 PO; +METO-6 PO; -PUMP1CAP PO
[2023-11-03 13:04] LABS: Basophils # (auto) 0.1 10 ^3/uL (0-0.2); Basophils % (auto) 1.2 % (0.0-2.0); Eosinophils # (auto) 0.1 10 ^3/uL (0-0.8); Eosinophils % (auto) 1.9 % (0.0-7.0); Hemoglobin 14.7 g/dL (12.2-16.2); Lymphocytes # (auto) 1.5 10 ^3/uL (0.4-5.4); Lymphocytes % (auto) 21.1 % (10.0-50.0); Mean Corpuscular Hgb Conc. 33.4 g/dL (32.0-36.0); Mean Corpuscular Volume 86.9 fL (80.0-100.0); Monocytes # (auto) 0.4 10 ^3/uL (0-1.3); Monocytes % (auto) 6.3 % (0.0-12.0); Neutrophils # (auto) 4.8 10 ^3/uL (1.6-8.6); Neutrophils % (auto) 69.5 % (37.0-80.0); Nucleated Red Blood Cells % 0.1 %; Red Blood Cells 5.06 10^6/uL (4.0-5.20); White Blood Cell 6.9 10^3/uL (4.4-10.8)
[2023-11-03 13:27] LABS: Alanine Aminotransferase 14 U/L (7-40); Albumin 4.1 g/dL (3.2-4.8); Alkaline Phosphatase 79 U/L (46-116); Anion Gap 3 (5-15); Aspartate Aminotransferase 15 U/L (13-40); BUN/Creatinine Ratio 9.6 (10.0-20.0); Bilirubin, Total 1.1 mg/dL (0.2-1.0); Blood Urea Nitrogen 11 mg/dL (9-23); Calcium 9.4 mg/dL (8.5-10.1); Carbon Dioxide 28 mmol/L (20-30); Chloride 107 mmol/L (98-107); Glucose 110 mg/dL (74-106); Potassium 4.4 mmol/L (3.5-5.1); Sodium 138 mmol/L (136-145); Total Protein 6.6 g/dL (5.7-8.2)
[2023-11-03] MEDS ORDERED: ASPI1TAB19 PO (16:37)
[2023-11-03] MEDS ORDERED: ONDANSETRON HCL 4 MG/2 ML VIAL IV PRN (16:45)
[2023-11-03] MEDS ORDERED: ACETAMINOPHEN 325 MG TAB PO PRN (16:45)
[2023-11-03] MEDS ORDERED: MORPHINE SULFATE INJ 2 MG/ml SYRG IV PRN (16:45)
[2023-11-03] MEDS ORDERED: DOCUSATE SOD 100 MG CAP PO PRN (16:45)
[2023-11-03] MEDS ORDERED: HYDROcodone-ACET 5/325MG TAB PO PRN (16:45)
[2023-11-03] MEDS ORDERED: NITROGLYCERIN 0.4 MG SL TAB SL PRN (16:45)
[2023-11-03 16:56] VITALS: PULSE 71; RESP 19; O2SAT 98
[2023-11-03 17:00] VITALS: BP 140/80; PULSE 74; RESP 16; O2SAT 95
[2023-11-03] MEDS ORDERED: SODIUM CHLOR 0.9% PF (SALINE LOCK) 10ML VIAL/SYR IV SCH (22:00)
[2023-11-03] MEDS ORDERED: APIXABAN 5 MG TAB PO SCH (22:00)
[2023-11-03] MEDS ORDERED: ATORVASTATIN 20 MG TAB PO SCH (22:00)
[2023-11-03] MEDS ORDERED: AMIODARONE HCL 200 MG TAB PO SCH (22:00)
[2023-11-04] MEDS ORDERED: LEVOTHYROXINE SODIUM 50 MCG TAB PO SCH (07:00)
[2023-11-04] MEDS ORDERED: LISINOPRIL 5 MG TAB PO SCH (10:00)
[2023-11-04] MEDS ORDERED: ASPirin-EC 81 mg tab PO SCH (10:00)
[2023-11-04] MEDS ORDERED: METOPROLOL SUCCINATE XL 50 MG TAB PO SCH (10:00)
== END 2023-11-04 23:30 | disposition left against medical advice (07) | DRG 948 ==
LOC: ER 11:56 → TELE 16:37 → TELE-EAST 23:55 → TELE 11-04 01:00
PROVIDERS: ADMIT Internal Medicine; ATTEND Internal Medicine
DX: R53.1 Weakness (principal); S09.8XXA Other specified injuries of head, initial encounter; F03.90 Unspecified dementia, unspecified severity, without behavioral disturbance, psychotic disturbance, mood disturbance, and anxiety; I11.0 Hypertensive heart disease with heart failure; I50.9 Heart failure, unspecified; E03.9 Hypothyroidism, unspecified; I48.91 Unspecified atrial fibrillation; W18.39XA Other fall on same level, initial encounter; R09.89 Other specified symptoms and signs involving the circulatory and respiratory systems; E78.5 Hyperlipidemia, unspecified; R29.6 Repeated falls; Z53.29 Procedure and treatment not carried out because of patient's decision for other reasons; Z90.710 Acquired absence of both cervix and uterus; Z83.3 Family history of diabetes mellitus; Z82.49 Family history of ischemic heart disease and other diseases of the circulatory system; Y93.89 Activity, other specified; Y92.89 Other specified places as the place of occurrence of the external cause; Y99.8 Other external cause status
CPT/HCPCS: 36415; 70450; 71045; 72125; 73030; 80053; 82962; 83605; 83880; 84484; 85025; 93005; G0378

== ENCOUNTER 2024-02-14 09:42 | Inpatient (IN) | payer MEDICARE, OTHER ==
[~2024-02-14] VITALS: Ht 167.6 cm; Wt 77.4 kg
[~2024-02-14 09:42] MED LIST changes: +ASPI1TAB19 PO; +ATOR-507 PO; +CEPH500T PO; +ERGO1CAP12 PO; -LEV50T PO; +LEVO-848 PO
[2024-02-14 10:00] VITALS: BP 102/60; PULSE 69; RESP 17; TEMP 97.7; O2SAT 97
[2024-02-14] MEDS ORDERED: MORPHINE SULFATE INJ 2 MG/ml SYRG IV PRN (10:30)
[2024-02-14] MEDS ORDERED: NITROGLYCERIN 0.4 MG SL TAB SL PRN (10:30)
[2024-02-14 11:45] LABS: Alanine Aminotransferase 89 U/L (7-40); Alkaline Phosphatase 91 U/L (46-116); Anion Gap 4 (5-15); Aspartate Aminotransferase 55 U/L (13-40); BUN/Creatinine Ratio 11.1 (10.0-20.0); Blood Urea Nitrogen 15 mg/dL (9-23); Calcium 9.3 mg/dL (8.7-10.4); Carbon Dioxide 27 mmol/L (20-30); Chloride 106 mmol/L (98-107); Glucose 139 mg/dL (74-106); Potassium 4.2 mmol/L (3.5-5.1); Sodium 137 mmol/L (136-145)
[2024-02-14 11:46] LABS: Total Protein 6.2 g/dL (5.7-8.2)
[2024-02-14 11:50] LABS: Basophils # (auto) 0 10 ^3/uL (0-0.2); Basophils % (auto) 0.9 % (0.0-2.0); Eosinophils # (auto) 0 10 ^3/uL (0-0.8); Eosinophils % (auto) 0.6 % (0.0-7.0); Hematocrit 43.3 % (36.0-46.0); Hemoglobin 15.2 g/dL (12.2-16.2); Lymphocytes # (auto) 0.7 10 ^3/uL (0.4-5.4); Mean Corpuscular Hemoglobin 30.7 pg (28.0-32.0); Mean Corpuscular Hgb Conc. 35.1 g/dL (32.0-36.0); Mean Corpuscular Volume 87.4 fL (80.0-100.0); Monocytes # (auto) 0.3 10 ^3/uL (0-1.3); Monocytes % (auto) 5.7 % (0.0-12.0); Neutrophils # (auto) 4.5 10 ^3/uL (1.6-8.6); Neutrophils % (auto) 79.8 % (37.0-80.0); Nucleated Red Blood Cells % 0.1 %; Platelet Count (auto) 165 10^3/uL (140-450); Red Blood Cells 4.96 10^6/uL (4.0-5.20); Red Cell Distribution Width 14.8 % (11.8-14.3); White Blood Cell 5.7 10^3/uL (4.4-10.8)
[2024-02-14 11:56] LABS: INR 1.23 (0.9-1.15); Partial Thromboplastin Time 27.7 SEC (24.5-34.5); Prothrombin Time 12.8 sec (9.3-11.8)
[2024-02-14 13:00] VITALS: BP 119/57; PULSE 60; RESP 16; TEMP 97.6; O2SAT 96
[2024-02-14 17:00] VITALS: BP 140/67; PULSE 65; RESP 16; TEMP 97.6; O2SAT 98
[2024-02-14 17:29] LABS: Urine Bacteria None Seen /hpf (None Seen)
[2024-02-14 18:35] LABS: Urine Blood Negative /uL (Negative); Urine Clarity Turbid (Clear); Urine Color Yellow (Yellow); Urine Mucus FEW (None Seen); Urine Protein, UAD TRACE (Negative); Urine Specific Gravity 1.021 (1.001-1.035); Urine Urobilinogen Normal (Negative); Urine WBC 5 /hpf (0 - 5); Urine pH 5.5 (5.0-9.0)
[2024-02-14 20:00] VITALS: PULSE 60; PULSE 70; RESP 16; O2SAT 93
[2024-02-14] MEDS: ATORVASTATIN 20 MG TAB PO SCH (21:09)
[2024-02-14] MEDS: APIXABAN 5 MG TAB PO SCH (21:09)
[2024-02-15] MEDS: TEMAZEPAM 15 MG CAP PO ONE (01:15)
[2024-02-15] MEDS: LEVOTHYROXINE SODIUM 50 MCG TAB PO SCH (06:02)
[2024-02-15 08:00] VITALS: PULSE 66
[2024-02-15 09:00] VITALS: BP 101/55; PULSE 96; RESP 16; TEMP 97.5; O2SAT 93
[2024-02-15 09:06] LABS: RPR Non Reactive (Non Reactive)
[2024-02-15] MEDS: ASPirin 81 mg TAB PO SCH (09:27)
[2024-02-15] MEDS: METOPROLOL SUCCINATE XL 50 MG TAB PO SCH (09:28)
[2024-02-15 13:00] VITALS: BP 118/70; PULSE 69; RESP 17; TEMP 97.3; O2SAT 96
[2024-02-15] MEDS: CYANOCOBALAMIN (B-12) 1000 MCG/1 ML VIAL SUBCUT ONE (16:58)
[2024-02-15 17:00] VITALS: BP 114/61; PULSE 72; RESP 16; TEMP 97.1; O2SAT 96
[2024-02-15 20:00] VITALS: PULSE 59; PULSE 64; RESP 14; O2SAT 94
[2024-02-15 21:00] VITALS: BP 114/68; PULSE 59; RESP 14; TEMP 97.5; O2SAT 94
[2024-02-15] MEDS: DONEPEZIL HYDROCHLORIDE 5 MG TAB PO SCH (21:48)
[2024-02-16 05:00] VITALS: BP 106/5; PULSE 65; RESP 16; TEMP 106; O2SAT 96
[2024-02-16 07:20] LABS: Anion Gap 7 (5-15); Carbon Dioxide 24 mmol/L (20-30); Chloride 105 mmol/L (98-107); Potassium 3.5 mmol/L (3.5-5.1); Sodium 136 mmol/L (136-145)
[2024-02-16 07:21] LABS: Calcium 9.1 mg/dL (8.7-10.4)
[2024-02-16 07:26] LABS: BUN/Creatinine Ratio 13.1 (10.0-20.0); Blood Urea Nitrogen 13 mg/dL (9-23); Glucose 109 mg/dL (74-106)
[2024-02-16 08:00] VITALS: PULSE 64
[2024-02-16] MEDS: ACETAMINOPHEN 500 MG TAB PO PRN (08:30)
[2024-02-16 08:53] LABS: Hepatitis B Surface Antigen Negative (Negative)
[2024-02-16 09:00] VITALS: BP 115/66; PULSE 80; RESP 18; TEMP 98.5; O2SAT 93
[2024-02-16 09:15] LABS: Hepatitis C Antibody Negative (Negative)
[2024-02-16] MEDS ORDERED: METO25TA93 PO (11:52)
[2024-02-16 12:49] VITALS: BP 115/66; PULSE 80; RESP 18; TEMP 98.5; O2SAT 93
== END 2024-02-16 14:45 | disposition home health service (06) | DRG 683 ==
LOC: CENTRAL 09:42 → UNDOADMIN 09:42 → CENTRAL 10:31 → TELE-CENTR 11:28 → CENTRAL 11:28 → TELE-CENTR 21:30
PROVIDERS: ADMIT Internal Medicine; ATTEND Internal Medicine
DX: N17.0 Acute kidney failure with tubular necrosis (principal); I50.42 Chronic combined systolic (congestive) and diastolic (congestive) heart failure; E78.5 Hyperlipidemia, unspecified; E03.9 Hypothyroidism, unspecified; I11.0 Hypertensive heart disease with heart failure; G30.9 Alzheimer's disease, unspecified; R29.6 Repeated falls; I48.91 Unspecified atrial fibrillation; E53.8 Deficiency of other specified B group vitamins; F02.80 Dementia in other diseases classified elsewhere, unspecified severity, without behavioral disturbance, psychotic disturbance, mood disturbance, and anxiety; F17.200 Nicotine dependence, unspecified, uncomplicated; Z91.81 History of falling; Z82.49 Family history of ischemic heart disease and other diseases of the circulatory system; Z79.899 Other long term (current) drug therapy; Z90.710 Acquired absence of both cervix and uterus; Z95.2 Presence of prosthetic heart valve
CPT/HCPCS: 36415; 71045; 71250; 80048; 80053; 81001; 82607; 83880; 84443; 85025; 85610; 85730; 86592; 86803; 87340; 97110; 97116; 97163; 97530; G0378

== ENCOUNTER 2024-03-20 11:01 | Inpatient (IN) | payer MEDICARE, OTHER ==
[~2024-03-20] VITALS: Ht 162.6 cm; Wt 66.8 kg
[~2024-03-20 11:01] MED LIST changes: -ATOR40TA52 PO; -ERGO1CAP23 PO; -METO-6 PO; +METO25TA93 PO
[2024-03-20 11:30] VITALS: PULSE 60; RESP 14; O2SAT 95
[2024-03-20 11:49] LABS: Basophils # (auto) 0 10 ^3/uL (0-0.2); Basophils % (auto) 0.6 % (0.0-2.0); Eosinophils # (auto) 0 10 ^3/uL (0-0.8); Eosinophils % (auto) 0.8 % (0.0-7.0); Hematocrit 47.5 % (36.0-46.0); Lymphocytes # (auto) 1.1 10 ^3/uL (0.4-5.4); Lymphocytes % (auto) 17.7 % (10.0-50.0); Mean Corpuscular Hemoglobin 30.6 pg (28.0-32.0); Mean Corpuscular Hgb Conc. 33.8 g/dL (32.0-36.0); Mean Corpuscular Volume 90.6 fL (80.0-100.0); Monocytes # (auto) 0.4 10 ^3/uL (0-1.3); Monocytes % (auto) 6.7 % (0.0-12.0); Neutrophils # (auto) 4.4 10 ^3/uL (1.6-8.6); Neutrophils % (auto) 74.2 % (37.0-80.0); Nucleated Red Blood Cells % 0.1 %; Platelet Count (auto) 141 10^3/uL (140-450); Red Blood Cells 5.24 10^6/uL (4.0-5.20)
[2024-03-20 12:34] LABS: Chloride 108 mmol/L (98-107); Potassium 4.6 mmol/L (3.5-5.1); Sodium 138 mmol/L (136-145)
[2024-03-20 12:35] LABS: Anion Gap 8 (5-15); Calcium 9.8 mg/dL (8.7-10.4); Carbon Dioxide 22 mmol/L (20-31)
[2024-03-20 12:40] LABS: BUN/Creatinine Ratio 12.5 (10.0-20.0); Blood Urea Nitrogen 14 mg/dL (9-23); Glucose 115 mg/dL (74-106)
[2024-03-20] MEDS ORDERED: ERGOCALCIFEROL 50,000 UNIT(1.25MG) CAP PO SCH (16:15)
[2024-03-20] MEDS ORDERED: ONDANSETRON HCL 4 MG/2 ML VIAL IV PRN (16:15)
[2024-03-20] MEDS ORDERED: HYDROcodone-ACET 5/325MG TAB PO PRN (16:15)
[2024-03-20] MEDS ORDERED: HYDROmorphone HCL 2 MG/ML VL/or syr IV PRN (16:15)
[2024-03-20] MEDS ORDERED: ACETAMINOPHEN 325 MG TAB PO PRN (16:15)
[2024-03-20 19:34] LABS: Urine Bacteria None Seen /hpf (None Seen)
[2024-03-20 19:52] LABS: Urine Blood Negative /uL (Negative); Urine Clarity Clear (Clear); Urine Color Yellow (Yellow); Urine Protein, UAD TRACE (Negative); Urine Urobilinogen 6 mg/dL (Negative); Urine WBC 5 /hpf (0 - 5); Urine pH 5.5 (5.0-9.0)
[2024-03-20 21:35] VITALS: PULSE 65; RESP 18; O2SAT 95
[2024-03-20 21:40] VITALS: BP 108/62; PULSE 65; RESP 18; TEMP 98.7; O2SAT 95
[2024-03-20] MEDS ORDERED: DONE5TAB80 PO (21:49)
[2024-03-20] MEDS ORDERED: CARB1TAB73 PO (21:49)
[2024-03-20] MEDS ORDERED: LEVO50TA7 PO (21:49)
[2024-03-20] MEDS: AMIODARONE HCL 200 MG TAB PO SCH (23:00)
[2024-03-20] MEDS: ATORVASTATIN 20 MG TAB PO SCH (23:00)
[2024-03-20] MEDS: APIXABAN 5 MG TAB PO SCH (23:00)
[2024-03-20] MEDS: SODIUM CHLOR 0.9% PF (SALINE LOCK) 10ML VIAL/SYR IV SCH (23:01)
[2024-03-21] VITALS (8 sets, daily range): BP systolic 103–116; BP diastolic 50–64; PULSE 62–69; RESP 17–18; TEMP 97.6–97.9; O2SAT 92–98
[2024-03-21] MEDS: ASPirin-EC 81 mg tab PO SCH (09:51)
[2024-03-21] MEDS: LEVOTHYROXINE SODIUM 50 MCG TAB PO SCH (09:52)
[2024-03-21] MEDS: METOPROLOL SUCCINATE XL 50 MG TAB PO SCH (10:00)
[2024-03-21] MEDS: LISINOPRIL 5 MG TAB PO SCH (10:00)
[2024-03-21] MEDS ORDERED: PATIENTS OWN MEDICATION (Atorvastatin Calcium (Lipitor) 1 TAB) PO SCH (10:00)
[2024-03-21] MEDS ORDERED: PATIENTS OWN MEDICATION (Metoprolol Succinate (Metoprolol Succinate Er) 1 TAB) PO SCH (10:00)
[2024-03-21] MEDS ORDERED: ENOXAPARIN SOD 40 MG/0.4 ML SYRINGE SC SCH (10:00)
[2024-03-21] MEDS ORDERED: PATIENTS OWN MEDICATION (Lisinopril 1 TAB) PO SCH (10:00)
[2024-03-22 01:00] VITALS: BP 110/61; PULSE 65; RESP 17; TEMP 98.1; O2SAT 96
[2024-03-22 05:00] VITALS: BP 93/46; PULSE 60; RESP 17; TEMP 97.3; O2SAT 95
[2024-03-22 09:00] VITALS: BP 102/56; PULSE 69; RESP 16; TEMP 98; O2SAT 94
[2024-03-22 13:00] VITALS: BP 127/76; PULSE 76; RESP 16; TEMP 97.9; O2SAT 95
== END 2024-03-22 13:43 | disposition home health service (06) | DRG 57 ==
LOC: ER 11:01 → EDBD 11:01 → OVERFLOW 16:03 → WEST WING 21:34
PROVIDERS: ADMIT Internal Medicine; ATTEND Student in an Organized Health Care Education/Training Program
DX: G30.9 Alzheimer's disease, unspecified (principal); F02.80 Dementia in other diseases classified elsewhere, unspecified severity, without behavioral disturbance, psychotic disturbance, mood disturbance, and anxiety; G20.A1 Parkinson's disease without dyskinesia, without mention of fluctuations; R29.6 Repeated falls; I12.9 Hypertensive chronic kidney disease with stage 1 through stage 4 chronic kidney disease, or unspecified chronic kidney disease; N18.30 Chronic kidney disease, stage 3 unspecified; I48.91 Unspecified atrial fibrillation; E78.5 Hyperlipidemia, unspecified; E03.9 Hypothyroidism, unspecified; Z91.81 History of falling; Z90.710 Acquired absence of both cervix and uterus; Z79.01 Long term (current) use of anticoagulants
CPT/HCPCS: 36415; 70450; 71045; 73501; 80048; 81001; 82962; 84484; 85025; 93005; 97110; 97116; 97163; 97530; G0378